=== PATIENT | female | born 1950 | race Caucasian/White ===

== ENCOUNTER 2016-11-02 10:13 | Emergency (ER) | payer BC ==
[2016-11-02 10:21] VITALS: BP 133/73
--- NOTE | 2016-11-02 11:01 | XRAY Preliminary Report ---
Exam: XR Ribs 3 View BILAT IMPRESSION: Normal rib radiography. [facility] SITE ID: [id number]
--- NOTE | 2016-11-02 11:04 | XRAY Report ---
EXAM: BILATERAL RIB RADIOGRAPHY EXAM DATE: 11/02/2016 10:38 AM. CLINICAL HISTORY: Chest pain post fall. COMPARISON: None. TECHNIQUE: 5 views. FINDINGS: Bones: Normal. No fracture or bone lesion. Lungs: No focal opacities evident. No pneumothorax or pleural effusions. Mediastinum: Heart and cardiomediastinal contours are unremarkable. Other: None. IMPRESSION: Normal rib radiography. [facility] Referring Provider Line: [phone] SITE ID: [id number]
[2016-11-02] MEDS ORDERED: DEXAMETHASONE 10 MG/ML VIAL PO STA (12:16)
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
[2016-11-02] MEDS ORDERED: DEXAMETHASONE 10 MG/ML VIAL ONE (12:18)
== END 2016-11-02 12:40 | disposition home or self-care (01) ==
LOC: ED 10:13
DX: S20.219A Contusion of unspecified front wall of thorax, initial encounter (principal); W01.198A Fall on same level from slipping, tripping and stumbling with subsequent striking against other object, initial encounter; Y93.01 Activity, walking, marching and hiking; Y92.828 Other wilderness area as the place of occurrence of the external cause
CPT/HCPCS: 71110; 99283

== ENCOUNTER 2017-10-18 07:45 | Emergency (ER) | payer MEDICARE, OTHER ==
[2017-10-18 08:14] VITALS: BP 125/56
--- NOTE | 2017-10-18 08:48 | ED Physician Documentation ---
History of Present Illness - Stated complaint Stated Complaint: LT LOWER LEG SWELLING - Chief complaint Chief Complaint: Ext Problem - History obtained from History obtained from: Patient - History of Present Illness Timing: How many weeks ago (1) - Additonal information Additional information: 67 y/o female has an area on the left lower leg with swelling and tenderness and she is concerned that this may be a blood clot. The veins are palpable over the area and tender and firm. She does have some pain in the back of the calf as well. The area has been swollen and tender without known trauma. Review of Systems Constitutional: denies: Fever Eyes: denies: Decreased vision Ears: denies: Ear pain Nose: denies: Congestion Throat: denies: Sore throat Respiratory: denies: Cough GI: denies: Vomiting Skin: denies: Rash Musculoskeletal: reports: Extremity pain, Extremity swelling. 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 - Allergies Allergies/Adverse Reactions: Allergies Allergy/AdvReac Type Severity Reaction Status Date / Time No Known Drug Allergies Allergy Verified 10/18/17 07:58 - Social History Does the pt smoke?: No Smoking Status: Never smoker Does the pt drink ETOH?: Yes Does the pt have substance abuse?: No - Immunizations Immunizations are current?: Yes - POLST Patient has POLST: No PD ED PE NORMAL - Vitals Vital signs reviewed: Yes (normal with wide pulse pressure) - General General: Alert and oriented X 3, No acute distress, Well developed/nourished - HEENT HEENT: Atraumatic, PERRL - Respiratory Respiratory: No respiratory distress - Derm Derm: Normal color, Warm and dry, No rash - Extremities Extremities: No deformity, No edema, Other (There is an area about 5cm X 3cm on the left medial calf that has firm palpable viens that are midly tender. There is minimal discoloration to the skin overlying the area. There is minimal tenderness without palpable mass to the posterior calf. ) - Neuro Neuro: No motor deficit, No sensory deficit Eye Opening: Spontaneous Motor: Obeys Commands Verbal: Oriented GCS Score: 15 - Psych Psych: Normal mood, Normal affect Results - Vitals Vitals: Vital Signs - 24 hr 10/18/17 07:53 Temperature 36.2 C L Heart Rate 79 Respiratory 16 Rate Blood Pressure 125/56 L O2 Saturation 97 Oxygen O2 Source Room air - Rads (name of study) duplex veins left Radiology: Prelim report reviewed (Impression: No evidence for deep venous thrombosis in the left lower extremity.), EMP read indepedently, See rad report PD MEDICAL DECISION MAKING - ED course Complexity details: considered differential, d/w patient ED course: 67-year-old female with some tender left calf veins superficially has no evidence of deep vein thrombosis and she is diagnosed with superficial thrombophlebitis. Departure - Departure Disposition: 01 Home, Self Care Clinical Impression: Thrombophlebitis leg Condition: Stable Instructions: ED Phlebitis Superficial Follow-Up: Meenakshi Peng ARNP [Primary Care Provider] -
--- NOTE | 2017-10-18 09:09 | Ultrasound Report ---
EXAM: LEFT LOWER EXTREMITY VENOUS ULTRASOUND EXAM DATE: 10/18/2017 08:24 AM. CLINICAL HISTORY: Tender inflammed veins left medial ankle. COMPARISON: None. TECHNIQUE: Real-time sonographic vascular imaging was performed by the hvac design mechanical engineer through the lower extremity utilizing both color-flow and Doppler spectral analysis. Multiple retail wireless sales representative static alvaro ges were saved for review. FINDINGS: Common Femoral Vein (CFV): Normal. CFV-GSV Junction: Normal. Profunda Femoral Vein (PFV): Normal. Femoral Vein (FV) Prox: Normal. Femoral Vein (FV) Mid: Normal. Femoral Vein (FV) Dist: Normal. Popliteal Vein: Normal. Posterior Tibial Veins: Normal. Peroneal Veins: Normal. Contralateral Side CFV: Normal. Other: None. IMPRESSION: No evidence for deep venous thrombosis in the left lower extremity. [facility] Referring Provider Line: [phone] SITE ID: [id number]
== END 2017-10-18 09:26 | disposition home or self-care (01) ==
LOC: ED 07:45
DX: I80.02 Phlebitis and thrombophlebitis of superficial vessels of left lower extremity (principal)
CPT/HCPCS: 99282; 99283

== ENCOUNTER 2017-12-10 23:01 | Emergency (ER) | payer MEDICARE, OTHER ==
[2017-12-10] MEDS ORDERED: traMADol 50 MG TABLET PO STA (23:24)
[2017-12-10] MEDS ORDERED: IBUPROFEN 600 MG TABLET PO STA (23:24)
[2017-12-10] MEDS ORDERED: LIDOCAINE JELLY 2% 5 ML TUBE TOP STA (23:24)
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
[2017-12-11] MEDS ORDERED: HYDROcod/ACET 5/325 Prepack 4 PO STA (00:36)
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
[2017-12-11 01:20] VITALS: BP 103/84
== END 2017-12-11 01:20 | disposition home or self-care (01) ==
LOC: ED 23:01
DX: T20.07XA Burn of unspecified degree of neck, initial encounter (principal); T24.012A Burn of unspecified degree of left thigh, initial encounter; T21.02XA Burn of unspecified degree of abdominal wall, initial encounter; T31.0 Burns involving less than 10% of body surface; S61.210A Laceration without foreign body of right index finger without damage to nail, initial encounter; S61.212A Laceration without foreign body of right middle finger without damage to nail, initial encounter; H93.12 Tinnitus, left ear; R23.3 Spontaneous ecchymoses; W39.XXXA Discharge of firework, initial encounter; Y92.007 Garden or yard of unspecified non-institutional (private) residence as the place of occurrence of the external cause
CPT/HCPCS: 73130; 99283; A9270; J3490

== ENCOUNTER 2019-12-30 08:00 | Outpatient (CLI) | payer MEDICARE, OTHER ==
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
== END 2019-12-30 23:59 | disposition home or self-care (01) ==
LOC: DI.S 08:00
PROVIDERS: ATTEND Physician Assistant
DX: R60.0 Localized edema (principal)

== ENCOUNTER 2022-08-16 08:00 | Outpatient (CLI) | payer MEDICARE, BC ==
[2022-08-16 19:46] LABS: BILIRUBIN,URINE NEGATIVE (NEGATIVE); GLUCOSE, URINE (UA) NEGATIVE (NEGATIVE); KETONES,URINE (UA) NEGATIVE (NEGATIVE); LEUKOCYTE ESTERASE, URINE NEGATIVE (NEGATIVE); NITRITE,URINE NEGATIVE (NEGATIVE); OCCULT BLOOD,URINE MODERATE (NEGATIVE); PH,URINE 5.5 PH (5.0-7.5); PROTEIN,URINE NEGATIVE (NEGATIVE); UROBILINOGEN,URINE 0.2 (NORMAL) E.U./dL (NORMAL)
[2022-08-16 19:53] LABS: CLARITY,URINE CLOUDY (CLEAR)
[2022-08-16 19:56] LABS: BACTERIA,URINE Many /HPF (None Seen); RBC,URINE 0-5 /HPF (0-5); SQUAMOUS EPITHELIAL CELL,UR RARE Squamous (<= Few)
== END 2022-08-16 23:59 | disposition home or self-care (01) ==
LOC: LAB 08:00
PROVIDERS: ATTEND Emergency Medicine
DX: R30.0 Dysuria (principal)
CPT/HCPCS: 81001; 87086

== ENCOUNTER 2022-10-18 08:00 | Outpatient (CLI) | payer OTHER, MEDICARE, BC ==
--- NOTE | 2022-10-18 15:30 | XRAY Report ---
PROCEDURE: Foot 3 View LT INDICATIONS: LEFT FOOT PAIN TECHNIQUE: 3 views of the foot were acquired. COMPARISON: None. FINDINGS: Bones: No fractures or dislocations. Osteoarthritic changes are noted throughout left foot with jessica nt space narrowing and subchondral sclerosis. No suspicious bony lesions. Soft tissues: No suspicious soft tissue calcifications or masses. IMPRESSION: No left foot fracture or dislocation. 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 No gross soft t issue abnormalities. Reviewed by: Terence Mitchell MD on 10/18/2022 3:29 PM PDT Approved by: Terence Mitchell MD on 10/18/2022 3:29 PM PDT Station ID: [id number]
== END 2022-10-18 23:59 | disposition home or self-care (01) ==
LOC: DI.S 08:00
PROVIDERS: ATTEND Physician Assistant
DX: M19.072 Primary osteoarthritis, left ankle and foot (principal)

== ENCOUNTER 2023-10-23 07:53 | Emergency (ER) | payer MEDICARE, BC ==
--- NOTE | 2023-10-23 08:46 | XRAY Report ---
PROCEDURE: Knee 3V RT INDICATIONS: fall/injury/pain TECHNIQUE: 3 views of the knee(s) were acquired. COMPARISON: None. FINDINGS: Bones: No fractures or dislocations. No suspicious bony lesions. Tricompartment osteophytes. Modera te to severe medial compartment joint space loss. Soft tissues: Moderate knee joint effusion. No suspicious soft tissue calcifications or masses. IMPRESSION: No acute bony abnormality. Degenerative arthritis. Knee joint effusion. If there remains a high clini stefanie concern for fracture, including inability to bear weight, consider cross-sectional imaging to exc lude an occult fracture. Reviewed by: Kishan Stafford MD on 10/23/2023 8:45 AM PDT Approved by: Kishan Stafford MD on 10/23/2023 8:45 AM PDT Station ID: [id number]
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
[2023-10-23 10:01] VITALS: BP 125/63; O2SAT 98
== END 2023-10-23 10:05 | disposition home or self-care (01) ==
LOC: ED 07:53
DX: S83.91XA Sprain of unspecified site of right knee, initial encounter (principal); M25.461 Effusion, right knee; W01.0XXA Fall on same level from slipping, tripping and stumbling without subsequent striking against object, initial encounter; Y93.6A Activity, physical games generally associated with school recess, summer camp and children; Z79.01 Long term (current) use of anticoagulants; Z86.718 Personal history of other venous thrombosis and embolism
CPT/HCPCS: 99283